=== PATIENT | female | born 1960 | race Caucasian/White ===

== ENCOUNTER → 2018-07-26 | Outpatient (CLI) | payer MEDICARE, MEDICAID ==
[~2018-07-26] MED LIST: CINA30 PO; CLON0.1T PO; FAMO20TA8 PO; FOLI0.8T23 PO; GLIP5TAB12 PO; NIFE30TA94 PO; SEVE800T8 PO
== END | disposition home or self-care (01) ==
LOC: PVL 11:04
PROVIDERS: ATTEND Specialist
DX: E11.51 Type 2 diabetes mellitus with diabetic peripheral angiopathy without gangrene (principal); I12.0 Hypertensive chronic kidney disease with stage 5 chronic kidney disease or end stage renal disease; N18.6 End stage renal disease
CPT/HCPCS: 93923

== ENCOUNTER → 2018-08-23 | Outpatient (CLI) | payer MEDICARE, MEDICAID ==
[~2018-08-23] MED LIST changes: +IOHEXOL-350 100 ML BOTTLE ONE
== END | disposition home or self-care (01) ==
LOC: CT 09:18
PROVIDERS: ATTEND Specialist
DX: I70.209 Unspecified atherosclerosis of native arteries of extremities, unspecified extremity (principal); I77.1 Stricture of artery; I12.0 Hypertensive chronic kidney disease with stage 5 chronic kidney disease or end stage renal disease; E11.22 Type 2 diabetes mellitus with diabetic chronic kidney disease; N18.6 End stage renal disease
CPT/HCPCS: 72191; 73706; Q9967